=== PATIENT | female | born 1980 | race Caucasian/White ===

== ENCOUNTER → 2016-08-20 | Day surgery (SDC) | payer OTHER ==
--- NOTE | 2016-08-14 16:44 | MH ---
cc: JOHNNY MEDINA DATE OF ADMISSION 08/20/2016 DATE OF 1980 REASON FOR ADMISSION Anterior and posterior repair, perineoplasty HISTORY OF PRESENT ILLNESS The patient is a 36-year-old white female 2, para 2 who has had issues with pelvic organ prolapse. She has had a baby 9 1/2 pounds. After that, she noted issues with anterior posterior compartment prolapse. She is having issues with quality of life in terms of prolapse interfering with exercise and sexual function. After discussion of options, she wants to proceed with repair. PAST MEDICAL HISTORY Negative for heart, lung, liver disease, hypertension, diabetes or stroke. PAST SURGICAL HISTORY 1. Inguinal hernia and mesh repairs 2. Bilateral breast augmentation GYNECOLOGIC HISTORY No STDs or abnormal Pap smears. OBSTETRICAL HISTORY Two vaginal deliveries, largest baby 9 pounds nine and 1/2 pounds. 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 REVIEW OF SYSTEMS As above. No chest pain, orthopnea, PND. No nausea, vomiting, fever or chills. No vaginal bleeding or discharge. Issues with occasional stress incontinence when she does cross fit high intensity exercise, no significant incontinence when she is doing her day-to-day activities. PHYSICAL EXAMINATION VITAL SIGNS: On exam, she is afebrile. Vital signs stable. Blood pressure 110/70, height is 5 feet 7 inches, weight 137, BMI is 21.5. GENERAL: The patient is alert and oriented in acute stress. No sign of cognitive dysfunction or depression. HEENT: Within normal limits. NECK: Supple. No JVD. CHEST: Clear. HEART: Regular rate and rhythm. ABDOMEN: Soft, nontender. No hepatosplenomegaly. No CVA tenderness. PELVIC: Pelvic exam will be detailed under anesthesia but in the office we note pop Q Aa is 0, Ap is 0, point C is -6, total vaginal length is 10, genital hiatus is eight. Perineal body is two. Levator muscles are 4/5 strength, sacral nerve reflexes are normal. There is hypermobility of urethra with Q-tip test with more the 30 degrees of deviation. No significant postvoid residual. Further exam under anesthesia. EXTREMITIES: Normal skin without rashes. NEUROLOGIC: Nonfocal. No DVT signs. ASSESSMENT Patient with pelvic organ prolapse stage 2/3. Patient is aware of the risks, benefits and alternatives of planned procedures including damage to surrounding organs, bleeding and infection. She is aware of the failure rate and issues with postoperative dyspareunia as well as issues with possible de magaly incontinence. The patient has three separate pelvic prolapse issues. The anterior compartment, posterior compartment and loss of perineal body. All of these will be addressed. The patient at increased risk of failure secondary to her history of prior inguinal hernia repair requiring mesh. It is unusual for young woman of normal body mass to have inguinal hernias requiring mesh repair. This may increase her risk of pelvic repair failure. At this point, we anticipate outpatient procedure. We will use DVT prophylaxis with sequential compression device and antibiotic prophylaxis 2 grams Ancef. MD VERONICA Parker/ /3:59 PM /4:32 PM
[~2016-08-20] VITALS: Ht 170.2 cm; Wt 63.0 kg
[~2016-08-20] MED LIST: CHLORHEXIDINE GLUCONATE 2 % 1 PACK (2 CLOTHS) TOPICAL PRN; CYAN100025 SL; DEXAMETHASONE SOD PHOS 4 MG/ML VIAL ONE; DO NOT ADM ANY ANTICOAGULANT DRUGS PRN; FAMOTIDINE 20 MG/2 ML VIAL ONE; INSULIN HUMAN REGULAR 1,000 UNITS/10 ML VIAL SQ PRN; KETOROLAC TROMETHAMINE 30 MG/ML (IVP) VIAL IV PUSH PRN; KETOROLAC TROMETHAMINE 30 MG/ML (IVP) VIAL ONE; KETOROLAC TROMETHAMINE 60 MG/2 ML (IM) VIAL IM ONE; LACTATED RINGER'S 1000 ML IV PRN; LACTCAP8 PO; LIDOCAINE 1%/EPINEPHrine 1:100,000 SOLN 50 ML VIAL INFIL ONE; METHYLENE BLUE 10 MG/ML VIAL OTHER ONE; METOPROLOL TARTRATE 25 MG TAB PO PRN; MIDAZOLAM HCL 2 MG/2 ML VIAL ONE; MULT-120 PO; MULTTAB67 PO; OMEGCAP19 PO; ONDANSETRON HCL 4 MG/2 ML VIAL IV PUSH ONE; ONDANSETRON HCL 4 MG/2 ML VIAL IV PUSH PRN; POVIDONE IODINE 5% (ANTISEPSIS KIT) 4 APPLICATIONS EACH NARE PRN; PROPOFOL 200 MG/20 ML AMP IV ONE; SODIUM CHLORID 0.9% 500 ML IV PRN; ceFAZolin 1,000 MG/NS 100 ML IV SCH; ceFAZolin 2 GM PREMIX 50 ML IV SCH; ceFAZolin 2 GM PREMIX 50 ML ONE; fentaNYL CITRATE 250 MCG/5 ML AMP ONE; traMADol HCL 50 MG TAB PO PRN
[2016-08-20 06:53] VITALS: BP 100/60; PULSE 52; RESP 16; TEMP 97.4; O2SAT 100
--- NOTE | 2016-08-20 10:25 | MP ---
cc: JOHNNY MEDINA MD DATE OF SURGERY: 08/20/2016 PREOPERATIVE DIAGNOSES Rectocele, cystocele, pelvic organ prolapse. POSTOPERATIVE DIAGNOSES 1. Cystocele stage II moderate. 2. Rectocele stage III severe. 3. Diminution of external sphincter from 11 to 2 o'clock. 4. Enterocele. PROCEDURE 1. Anterior and posterior repair with enterocele. 2. External sphincteroplasty. 3. Diagnostic cystoscopy. SURGEON Dr. Medina ANESTHESIA Laryngeal mask. 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 FLUIDS 1000 cc crystalloid. URINE OUTPUT 200 cc. ESTIMATED BLOOD LOSS 25 cc. FINDINGS External genitalia normal. POP-Q score: Aa is 0; Ap is +2; point C is -6; total vaginal length is 10; genital hiatus is 10; perineal body is 3. Bimanual exam: Normal uterus. No adnexal mass. Rectal exam is unremarkable. Following repair Aa is -3; Ap is -3; point C is -6; total vaginal length is 10; genital hiatus is 5; perineal body is 5. Cystoscopy shows normal trigone, good coaptation of urethra. Ureteral orifices patent x2. Dome and base of bladder normal. Rectal exam following repair is normal. SPECIMENS Vaginal mucosa trimmed but not sent. COMPLICATIONS None. COUNTS Needle and sponge counts correct. DRAINS Harris catheter. PROPHYLAXIS Antibiotic prognosis: Ancef two grams. DVT prophylaxis: Sequential compression device. Timeout procedure per protocol. DISPOSITION To recovery room stable. INDICATION FOR PROCEDURE Patient with symptomatic pelvic organ prolapse. The patient's risk factors are prior delivery of 9-1/2 pound infant, and also has had issues with inguinal hernia repair requiring mesh so she may have some underlying issue with collagen tensile strength and integrity. DETAILS OF PROCEDURE The patient was taken to the operating theatre, identified, prepped and draped in a fashion appropriate for the planned procedure. She was in dorsal lithotomy position with careful attention paid to placement of legs in the stirrups to avoid undue stress to sensitive neurovascular structures. Above findings noted. Neurovascular integrity documented. A Harris catheter was placed. Methylene blue was instilled into the bladder. The most obvious finding on exam was the genital hiatus of 10 cm with significant pelvic organ prolapse posteriorly. The posterior compartments were infiltrated with epinephrine and lidocaine solution. A midline incision was made from the hymenal ring to the cervix. The vaginal mucosa was mobilized and rectocele and enterocele repaired with delayed absorbable suture without complication. The vaginal mucosa was trimmed and delayed absorbable suture was used to close in a locking fashion up to the area of the hymenal ring. Hemostatic matrix was used to obviate the need for packing. The patient had diminished perineal body and diminution of the external sphincter. An external sphincteroplasty was performed with delayed absorbable suture bringing the sphincter across the midline in end-to-end configuration. Perineoplasty was performed. Subcu sutures were used to close the perineal skin. The patient still had a considerable anterior compartment defect. This area was infiltrated with epinephrine and lidocaine solution. A midline incision was made from the cervix to approximately 1 cm from the urethral meatus. There was no spill of methylene blue with dissection. Cystocele repair was performed in the standard fashion with delayed absorbable suture. The vaginal mucosa was trimmed and the vaginal mucosa was closed with a running Vicryl suture in a locking fashion. Hemostasis was documented and the suture line was intact. The rectal exam showed no damage to the rectum. A cystoscopy was performed using a 17-Filipino bridge, a 70-degree scope. Above findings noted. Normal bladder and ureteral patency documented x2. Again suture line was inspected, found to be hemostatic. No packing was used. The Harris catheter was replaced. The patient was reversed from anesthesia and taken to the recovery room in stable condition. MD VERONICA Parker/SURESH /9:49 AM /10:08 AM
[2016-08-20 11:26] VITALS: BP 105/64; PULSE 49; RESP 16; TEMP 98.1; O2SAT 100
== END | disposition home or self-care (01) ==
LOC: HSDC 05:59
PROVIDERS: ATTEND Obstetrics & Gynecology Gynecology
DX: N81.10 Cystocele, unspecified (principal); N81.6 Rectocele; N36.41 Hypermobility of urethra; N81.89 Other female genital prolapse; K46.9 Unspecified abdominal hernia without obstruction or gangrene; F41.9 Anxiety disorder, unspecified; M41.9 Scoliosis, unspecified; Z87.891 Personal history of nicotine dependence
CPT/HCPCS: 57220; 57265; J0690; J1100; J1885; J2250; J2405; J3010; J7120